=== PATIENT | female | born 1955 | race Caucasian/White ===

== ENCOUNTER 2019-02-09 08:39 | Outpatient (CLI) | payer BC ==
--- NOTE | 2019-02-09 10:49 | RAD ---
RADIOGRAPH CHEST AND LEFT RIBS 4 VIEWS: 02/09/19 HISTORY: 63-year-old female with posttraumatic left rib pain. FINDINGS: The thoracic aorta is tortuous and ectatic. There is no evidence of air space density, pneumothorax, or pulmonary edema. The lateral costophrenic angles are sharp. There is no cardiomegaly. There is d iffuse osteopenia. No displaced left rib fracture is identified, although the lower ribs project infe rior to the left hemidiaphragm, and are very poorly visualized. IMPRESSION: 1) No acute pulmonary findings. 2) Ectasia of thoracic aorta. 3) No left rib fracture identified. tena POS: [facility]
== END 2019-02-09 08:40 | disposition home or self-care (01) ==
LOC: MADRAD 08:39
PROVIDERS: ATTEND Nurse Practitioner Family
DX: R07.81 Pleurodynia (principal); I77.810 Thoracic aortic ectasia; Z91.81 History of falling

== ENCOUNTER 2020-12-20 10:49 | Outpatient (CLI) | payer MEDICARE | END 2020-12-20 10:50 | disposition home or self-care (01) | LOC: MADRAD 10:49 | PROVIDERS: ATTEND Nurse Practitioner Family | DX: M25.551 Pain in right hip (principal); M54.5 Low back pain; Z91.81 History of falling; M47.816 Spondylosis without myelopathy or radiculopathy, lumbar region | CPT/HCPCS: 72100 ==

== ENCOUNTER 2021-10-29 11:51 | Outpatient (CLI) | payer MEDICARE | END 2021-10-29 11:52 | disposition home or self-care (01) | LOC: MADRAD 11:51 | PROVIDERS: ATTEND Nurse Practitioner Family | DX: M25.532 Pain in left wrist (principal); Z91.81 History of falling ==